=== PATIENT | male | born 1995 | race Caucasian/White ===

== ENCOUNTER 2018-05-23 22:00 | Emergency (ER) | payer OTHER ==
[2018-05-23] MEDS: ADACEL/BOOSTRIX VACCINE (DIPHTH/PERTUSS/ACELL/TETANUS)0.5ML SYR (90715) IM (23:53)
[2018-05-23] MEDS: DERMABOND TOPICAL SKIN ADHESIVE TOP (23:54)
== END 2018-05-24 00:16 | disposition home or self-care (01) ==
LOC: M ED 05-24 00:16
DX: S61.210A Laceration without foreign body of right index finger without damage to nail, initial encounter (principal); W26.9XXA Contact with unspecified sharp object(s), initial encounter; Y92.9 Unspecified place or not applicable; Y93.89 Activity, other specified; Y99.0 Civilian activity done for income or pay; Z79.899 Other long term (current) drug therapy; Z88.0 Allergy status to penicillin
CPT/HCPCS: 90715